=== PATIENT | female | born 1980 | race Caucasian/White ===

== ENCOUNTER 2016-12-11 20:58 | Emergency (ER) | payer BC | END 2016-12-11 22:08 | disposition home or self-care (01) | LOC: ER1 20:58 | DX: H10.13 Acute atopic conjunctivitis, bilateral (principal); Z88.2 Allergy status to sulfonamides | CPT/HCPCS: 99283; Q0163 ==

== ENCOUNTER → 2017-03-29 | Outpatient (CLI) | payer BC | LOC: ECHO 10:31 | DX: R00.2 Palpitations (principal); R07.9 Chest pain, unspecified ==

== ENCOUNTER 2021-08-07 11:49 | Emergency (ER) | payer BC ==
[~2021-08-07 11:49] MED LIST: BENTYL 10MG CAP10 MG PO; BENTYL 20MG TAB20 MG PO; PHENERGAN 12.12.5 MG PR; PHENERGAN 25 MG25 M1 PO; ZOFRAN ODT 4 MG4 MG PO; ZOFRAN ODT 4 MG4 MG SL
== END 2021-08-07 13:30 | disposition home or self-care (01) ==
LOC: ER1 11:49
DX: U07.1 COVID-19 (principal); Z90.710 Acquired absence of both cervix and uterus; Z88.2 Allergy status to sulfonamides; Z90.49 Acquired absence of other specified parts of digestive tract
CPT/HCPCS: 0240U; 71045; 99283

== ENCOUNTER 2021-08-17 20:48 | Emergency (ER) | payer BC ==
[2021-08-17 21:07] LABS: HEMOGLOBIN 14.6 gm/dl (12.3-15.3); RED BLOOD COUNT 4.75 M/UL (4.00-5.10); WHITE BLOOD COUNT 10.3 K/UL (4.5-11.0)
[2021-08-17 21:30] LABS: BUN/CREATININE RATIO 17 (0-10)
[2021-08-17] MEDS ORDERED: VISTARIL25 MG PO (22:58)
== END 2021-08-17 23:31 | disposition home or self-care (01) ==
LOC: ER1 20:48
PROVIDERS: Nurse Practitioner
DX: U09.9 Post COVID-19 condition, unspecified (principal); E03.9 Hypothyroidism, unspecified
CPT/HCPCS: 71045; 80048; 82550; 82553; 83874; 84484; 85025; 93005; 99285; Q0177; Q9967

== ENCOUNTER → 2021-09-05 | Outpatient (CLI) | payer BC ==
[~2021-09-05] MED LIST changes: +VISTARIL25 MG PO
== END ==
LOC: HEART 5 10:59
DX: R55 Syncope and collapse (principal); R42 Dizziness and giddiness; G43.009 Migraine without aura, not intractable, without status migrainosus; F44.89 Other dissociative and conversion disorders

== ENCOUNTER → 2021-10-04 | Outpatient (CLI) | payer BC | LOC: US 09-29 13:30 | DX: R07.9 Chest pain, unspecified (principal); R53.83 Other fatigue; R06.00 Dyspnea, unspecified; R23.0 Cyanosis; F33.1 Major depressive disorder, recurrent, moderate; I65.23 Occlusion and stenosis of bilateral carotid arteries | CPT/HCPCS: 93880 ==

== ENCOUNTER 2021-10-11 12:54 | Observation (INO) | payer BC ==
[~2021-10-11] VITALS: Ht 152.4 cm; Wt 83.9 kg
[2021-10-11 14:47] LABS: HEMOGLOBIN 14.4 gm/dl (12.3-15.3); RED BLOOD COUNT 4.82 M/UL (4.00-5.10); WHITE BLOOD COUNT 6.3 K/UL (4.5-11.0)
[2021-10-11 15:13] LABS: BUN/CREATININE RATIO 10 (0-10)
[2021-10-11] MEDS ORDERED: ESTRACE42.5 GM PO (20:41)
[2021-10-12 04:52] LABS: BUN/CREATININE RATIO 12 (0-10)
[2021-10-12] MEDS ORDERED: VISTARIL 25 MG25 MG PO (09:17)
[2021-10-12] MEDS ORDERED: ESTRACE1 MG PO (09:18)
[2021-10-12] MEDS ORDERED: PROTONIX40 MG PO (17:50)
[2021-10-12] MEDS ORDERED: LEVOTHYROXINE50 MCG PO (20:39)
[2021-10-12] MEDS ORDERED: PROGESTERONE100 MG PO (20:43)
== END 2021-10-12 18:58 | disposition home or self-care (01) ==
LOC: ER1 12:54 → CDU 18:23 → MED SURG 4 19:25
PROVIDERS: Emergency Medicine; ADMIT Internal Medicine
DX: R07.89 Other chest pain (principal); Z20.822 Contact with and (suspected) exposure to COVID-19; R10.13 Epigastric pain; E03.9 Hypothyroidism, unspecified; Z86.16 Personal history of COVID-19; E66.9 Obesity, unspecified; Z68.36 Body mass index [BMI] 36.0-36.9, adult; Z79.890 Hormone replacement therapy; Z88.2 Allergy status to sulfonamides
CPT/HCPCS: 36415; 71045; 78452; 80048; 80053; 81001; 82550; 82553; 83690; 84484; 84703; 85025; 93005; 93017; 99285; A9502; G0378; U0002